=== PATIENT | male | born 1965 | race Hispanic/Latino ===

== ENCOUNTER 2020-07-13 20:33 | Inpatient (IN) | payer OTHER, SELFPAY ==
[2020-07-13] MEDS ORDERED: THIAMINE 100 MG, FOLIC ACID 1 MG, MULTIPLE VITAMIN INJ, ADULT 10 ML in SODIUM CHLORIDE ... IV ONE (21:42)
[2020-07-13] MEDS ORDERED: SODIUM CHLORIDE 0.9% 1000 ML 1,000 ML IV ONE (21:42)
--- NOTE | 2020-07-13 21:50 | Emergency Department Report ---
HPI - General Chief Complaint: Alcohol Time Seen by Provider: 07/13/20 21:10 - HPI HPI: This is a 54-year-old male presents to the emergency department with a complaint of alcohol withdrawal. He does admit to alcohol dependence and last drank alcohol about 5 to 6 hours ago. Patient is homeless and says that he was hitchhiking on his way to [facility] in [place] because they allegedly have a alcohol detox program there. He denies any other past medical history. He complains of chills, tremors, nausea, body aches. He does admit to history of delirium tremens and alcohol withdrawal seizures. He has not taken anything for symptoms prior to presentation. He denies any fever, chest pain, shortness of breath, headache, vision change. ED Review of Systems ROS: Stated complaint: ETOH Other details as noted in HPI Comment: All other systems reviewed and negative Constitutional: chills. denies: fever Eyes: denies: eye pain, vision change ENT: denies: ear pain, throat pain Respiratory: denies: cough, shortness of breath Cardiovascular: denies: chest pain, palpitations Gastrointestinal: nausea. denies: vomiting Genitourinary: denies: dysuria, discharge Musculoskeletal: myalgia. denies: joint swelling Skin: denies: rash, lesions Neurological: other (tremors). denies: headache, numbness Physical Exam - Physical Exam Physical Exam: GENERAL: The patient is well-developed well-nourished. HENT: Normocephalic. Atraumatic. Patient has moist mucous membranes. EYES: Extraocular motions are intact. NECK: Supple. Trachea is midline. CHEST/LUNGS: Clear to auscultation. There is no respiratory distress noted. HEART/CARDIOVASCULAR: Regular. There is moderate tachycardia. There is no murmur. ABDOMEN: Abdomen is soft, nontender. Patient has normal bowel sounds. There is no abdominal distention. SKIN: Skin is warm and dry. NEURO: The patient is awake, alert, and oriented. The patient is cooperative. Moderate bilateral upper extremity tremors. Normal speech. MUSCULOSKELETAL: There is no tenderness or deformity. There is no limitation range of motion. PSYCH: Patient appears very anxious. ED Medical Decision Making - Lab Data Result diagrams: 07/13/20 22:01 07/13/20 22:01 - Radiology Data Radiology results: image reviewed interpreted by me: Chest x-ray does not show any acute process. There are no pleural effusions, obvious pneumonia and there is no pneumothorax. No significant cardiomegaly. - Medical Decision Making This patient presents to the emergency department with complaint of alcohol withdrawal symptoms. He does present with moderate tachycardia, initially with a heart rate of 142 bpm, appears slightly anxious and has been bilateral upper extremity tremors. This is consistent with alcohol withdrawal, however, the patient's blood alcohol level came back at 0.39. He was given 4 mg of Ativan as part of the alcohol withdrawal protocol which did help with the tachycardia and tremors, but that is mostly because the patient is sleeping at this time. While the patient is sleeping he will have some transient oxygen desaturation and the patient has been placed on oxygen via nasal cannula. Chest x-ray did not show any pneumonia, pleural effusions, pneumothorax, or any other acute process. The patient will be admitted to the hospital for further evaluation and treatment and was accepted for admission by the hospitalist, Dr. Sotomayor. Critical Care Time: No Critical care attestation.: If time is entered above; I have spent that time in minutes in the direct care of this critically ill patient, excluding procedure time. ED Disposition Clinical Impression: Alcohol abuse Alcohol dependence Qualifiers: Substance use status: in withdrawal Complication of substance-induced conditi on: with unspecified complication Qualified Code(s): F10.239 - Alcohol dependence with withdrawal, unspecified Alcohol withdrawal Qualifiers: Complication of substance-induced condition: with unspecified complication Qualified Code(s): F10.239 - Alcohol dependence with withdrawal, unspecified Disposition: 09 OP ADMIT IP TO THIS HOSP Is pt being admited?: Yes Condition: Fair Time of Disposition: 00:31
[2020-07-13] MEDS: LORazepam 2 MG/ML VIAL IV PRN (22:13)
[2020-07-13 22:26] LABS: Basophils % (Auto) 0.8 % (0.0-1.8); Eosinophils % (Auto) 0.6 % (0.0-4.3); Hematocrit 46.7 % (35.5-45.6); Hemoglobin 16.2 gm/dl (11.8-15.2); Lymphocytes # (Auto) 1.4 K/mm3 (1.2-5.4); Lymphocytes % (Auto) 38.7 % (13.4-35.0); Mean Corpuscular HGB Conc 35 % (32-34); Mean Corpuscular Volume 99 fl (84-94); Monocytes # (Auto) 0.4 K/mm3 (0.0-0.8); Monocytes % (Auto) 10.1 % (0.0-7.3); Platelet Count 271 K/mm3 (140-440); Red Cell Distribution Width 16.5 % (13.2-15.2)
[2020-07-13 22:54] LABS: Alanine Aminotransferase 97 units/L (7-56); Albumin 3.9 g/dL (3.9-5); Blood Urea Nitrogen 4 mg/dL (9-20); Calcium 8.6 mg/dL (8.4-10.2); Hemolysis Index 6
[2020-07-13 23:00] LABS: BUN/Creatinine Ratio 6
[2020-07-13 23:09] LABS: Bacteria,Urine 1+ /HPF (Negative); Bilirubin,Urine NEG (Negative); Blood,Urine NEG (Negative); Color,Urine Yellow (Yellow); Mucus,Urine FEW /HPF; Protein,Urine <15 mg/dL mg/dL (Negative); Urobilinogen,Urine < 2.0 mg/dL (<2.0)
[2020-07-13 23:15] LABS: Amphetamine Screen,Urine PRESUMPTIVE NEGATIVE; Benzodiazepines Screen,Urine PRESUMPTIVE NEGATIVE; Cannabinoid Screen,Urine PRESUMPTIVE POSITIVE; Cocaine Screen,Urine PRESUMPTIVE NEGATIVE; Methadone Screen,Urine PRESUMPTIVE NEGATIVE; Opiate Screen,Urine PRESUMPTIVE NEGATIVE
--- NOTE | 2020-07-14 01:13 | XRay Report ---
CHEST 1 VIEW, 07/13/2020 11:57 PM CLINICAL INFORMATION/INDICATION: Altered mental status COMPARISON: None FINDINGS: SUPPORT DEVICES: None. HEART: The cardiac silhouette is normal in size. LUNGS/PLEURA: The lungs are clear of focal airspace disease or significant pleural effusion. ADDITIONAL FINDINGS: No additional acute findings. IMPRESSION: 1. No evidence of acute cardiopulmonary process. Signer Name: Henrietta Campo MD Signed: 07/14/2020 1:09 AM Workstation Name: [id number]
[2020-07-14] MEDS ORDERED: LORazepam 2 MG/ML VIAL ONE (02:35)
[2020-07-14] MEDS: LORazepam 2 MG/ML VIAL IV PRN ×8 (02:36→18:08)
[2020-07-14] MEDS ORDERED: ONDANSETRON 4 MG/2 ML INJ IV PRN (02:56)
[2020-07-14] MEDS ORDERED: POTASSIUM CHLORIDE ER 20 MEQ TAB PO ONE ×2 (03:15→04:02)
--- NOTE | 2020-07-14 03:45 | History and Physical Report ---
History of Present Illness Date of examination: 07/14/20 Date of admission: 07/14/20 00:31 Chief complaint: Tremor and shakes History of present illness: 54 year old male presents with shakes , nausea and body aches, patient is homeless and abuses alcohol and had his last drink 5-6 hours before presentation to the Emergency Room. Patient said he is hitchhiking to get to [facility] where he is hoping to get detoxification for alcohol abuse.No history of fever, shortness of breath Past History Past Medical History: other (Delirium Tremens) Past Surgical History: No surgical history Social history: alcohol abuse, other (Homeless) Medications and Allergies Allergies Allergy/AdvReac Type Severity Reaction Status Date / Time aripiprazole [From Abilify] Allergy Unknown Verified 07/13/20 21:53 mirtazapine [From Remeron] Allergy Unknown Verified 07/13/20 21:53 ziprasidone [From Geodon] Allergy Unknown Verified 07/13/20 21:53 Active Meds: Active Medications Heparin Sodium (Porcine) (Heparin) 5,000 unit SUB-Q Q12HR SHIREEN Thiamine HCl 100 mg/ Folic Acid 1 mg/ Multivitamins/Minerals 10 ml/ Sodium Chloride 1,011.2 mls @ 250 mls/hr IV DAILY@2200 [facility] Sodium Chloride (Nacl 0.9% 1000 Ml) 1,000 mls @ 125 mls/hr IV DIRECT SHIREEN Lorazepam (Ativan) 2 mg IV Q1HR PRN PRN Reason: CIWA-Ar 8-15 Lorazepam (Ativan) 4 mg IV Q1HR PRN PRN Reason: CIWA-Ar 16-25 Last Admin: 07/13/20 22:13 Dose: 4 mg Documented by: Ondansetron HCl (Zofran) 4 mg IV Q8H PRN PRN Reason: Nausea And Vomiting Review of Systems Constitutional: weakness, no weight loss, no weight gain, no fever, no chills, no sweats, no night sweats, no malaise Eyes: bilateral: other (NO BILATERAL EYE SYMPTOMS) Ears, nose, mouth and throat: no ear pain, no ear discharge, no decreased hearing, no nasal congestion, no nasal discharge Cardiovascular: no chest pain, no palpitations, no rapid/irregular heart beat, no lightheadedness, no shortness of breath, no phlebitis Respiratory: no cough, no shortness of breath Gastrointestinal: nausea, no abdominal pain, no vomiting, no diarrhea, no constipation Genitourinary Male: no dysuria, no hematuria Rectal: no pain, no itching Musculoskeletal: no neck stiffness, no neck pain, no low back pain, no muscle weakness Integumentary: no rash, no pruritis, no redness, no sores, no wounds, no jaundice, no lesions Neurological: weakness, no paralysis, no parathesias, no numbness, no tingling, no seizures, no syncope, no tremors, no vertigo, no headaches, no migraines, no convulsions, no aphasia Psychiatric: no anxiety, no memory loss, no insomnia Endocrine: no cold intolerance, no heat intolerance, no nocturia, no palpatations Hematologic/Lymphatic: no easy bruising, no easy bleeding Allergic/Immunologic: no persistent infections, no anaphylaxis Exam - Constitutional Vitals: Temp Pulse Resp BP Pulse Ox 97.9 F 91 H 18 116/72 87 07/13/20 21:44 07/13/20 23:30 07/13/20 23:30 07/13/20 23:30 07/13/20 23:30 General appearance: Present: mild distress - EENT Eyes: Present: PERRL ENT: hearing intact, clear oral mucosa - Neck Neck: Present: supple, normal ROM - Respiratory Respiratory effort: normal - Cardiovascular Rhythm: regular Heart Sounds: Present: S1 & S2. Absent: gallop, systolic murmur, diastolic murmur - Extremities Extremities: no ischemia, No edema Peripheral Pulses: within normal limits - Abdominal General gastrointestinal: Present: soft, non-tender, non-distended. Absent: tender, distended, rigid Male genitourinary: Present: deferred - Rectal Rectal Exam: deferred - Integumentary Integumentary: Present: clear, warm, dry. Absent: jaundice - Musculoskeletal Musculoskeletal: strength equal bilaterally - Psychiatric Psychiatric: depressed (PATIENT VOICED SUICIDAL INTENTION TO THE NURSE), other - Neurologic Neurologic: moves all extremities HEART Score - HEART Score Age: 45-65 Risk factors: 1-2 risk factors - Critical Actions Critical Actions: 0-3 pts:0.9-1.7%risk of adverse cardiac event.Candidate for discharge Results - Labs CBC & Chem 7: 07/13/20 22:01 07/13/20 22:01 Labs: Laboratory Last Values WBC 3.7 K/mm3 (4.5-11.0) L 07/13/20 22: RBC 4.70 M/mm3 (3.65-5.03) 07/13/20 22: Hgb 16.2 gm/dl (11.8-15.2) H 07/13/20 22:01 Hct 46.7 % (35.5-45.6) H 07/13/20 22: MCV 99 fl (84-94) H 07/13/20 22: MCH 34 pg (28-32) H 07/13/20 22: MCHC 35 % (32-34) H 07/13/20: RDW 16.5 % (13.2-15.2) H 07/13/20 22: Plt Count 271 K/mm3 (140-440) 07/13/20 22:01 Lymph % (Auto) 38.7 % (13.4-35.0) H 07/13/20 22: [place] % (Auto) 10.1 % (0.0-7.3) H 07/13/20 22: Eos % (Auto) 0.6 % (0.0-4.3) 07/13/20 22: Baso % (Auto) 0.8 % (0.0-1.8) 07/13/20 22: Lymph # 1.4 K/mm3 (1.2-5.4) 07/13/20 22: [place] # 0.4 K/mm3 (0.0-0.8) 07/13/20: Eos # 0.0 K/mm3 (0.0-0.4) 07/13/20 22: Baso # 0.0 K/mm3 (0.0-0.1) 07/13/20 22: Seg Neutrophils % 49.8 % (40.0-70.0) 07/13/20: Seg Neutrophils # 1.8 K/mm3 (1.8-7.7) 07/13/20 22:01 Sodium 145 mmol/L (137-145) 07/13/20 22: Potassium 3.5 mmol/L (3.6-5.0) L 07/13/20 22:01 Chloride 102.5 mmol/L (98-107) 07/13/20 22:01 Carbon Dioxide 26 mmol/L (22-30) 07/13/20 22:01 Anion Gap 20 mmol/L 07/13/20 22:01 BUN 4 mg/dL (9-20) L 07/13/20 22:01 Creatinine 0.7 mg/dL (0.8-1.3) L 07/13/20 22:01 Estimated GFR > 60 ml/min 07/13/20 22:01 BUN/Creatinine Ratio 6 % 07/13/20 22:01 Glucose 107 mg/dL (75-100) H 07/13/20 22:01 Calcium 8.6 mg/dL (8.4-10.2) 07/13/20 22: Total Bilirubin 0.30 mg/dL (0.1-1.2) 07/13/20 22:01 AST 158 units/L (5-40) H 07/13/20 22:01 ALT 97 units/L (7-56) H 07/13/20 22:01 Alkaline Phosphatase 102 units/L (35-129) 07/13/20 22:01 Total Protein 7.7 g/dL (6.3-8.2) 07/13/20 22:01 Albumin 3.9 g/dL (3.9-5) 07/13/20 22: Albumin/Globulin Ratio 1.0 % 07/13/20 22:01 Urine Color Yellow (Yellow) 07/13/20 22:47 Urine Turbidity Clear (Clear) 07/13/20 22:47 Urine pH 7.0 (5.0-7.0) 07/13/20 22:47 Ur Specific [place] 1.005 (1.003-1.030) 07/13/20 22:47 Urine Protein <15 mg/dl mg/dL (Negative) 07/13/20 22:47 Urine Glucose (UA) Neg mg/dL (Negative) 07/13/20 22:47 Urine Ketones Neg mg/dL (Negative) 07/13/20 22:47 Urine Blood Neg (Negative) 07/13/20 22:47 Urine Nitrite Neg (Negative) 07/13/20 22:47 Urine Bilirubin Neg (Negative) 07/13/20 22:47 Urine Urobilinogen < 2.0 mg/dL (<2.0) 07/13/20 22:47 Ur Leukocyte Esterase Neg (Negative) 07/13/20 22:47 Urine WBC (Auto) 1.0 /HPF (0.0-6.0) 07/13/20 22:47 Urine RBC (Auto) 1.0 /HPF (0.0-6.0) 07/13/20 22:47 Urine Bacteria (Auto) 1+ /HPF (Negative) 07/13/20 22:47 Urine Mucus Few /HPF 07/13/20 22:47 Urine Opiates Screen Presumptive negative 07/13/20 22:47 Urine Methadone Screen Presumptive negative 07/13/20 22:47 Ur Barbiturates Screen Presumptive negative 07/13/20 22:47 Ur Phencyclidine Scrn Presumptive negative 07/13/20 22:47 Ur Amphetamines Screen Presumptive negative 07/13/20 22:47 U Benzodiazepines Scrn Presumptive negative 07/13/20 22:47 Urine Cocaine Screen Presumptive negative 07/13/20 22:47 U Marijuana (THC) Screen Presumptive positive 07/13/20 22:47 Drugs of Abuse Note Disclamer 07/13/20 22:47 Plasma/Serum Alcohol 0.39 % (0-0.07) H 07/13/20 22:01 Vazquez/IV: IV Catheter Type [Right Upper Peripheral IV arm] Assessment and Plan - Patient Problems (1) Suicidal ideations Current Visit: Yes Status: Acute Plan to address problem: INVOLUNTARY CONFINEMENT (1013) (2) Alcohol abuse Current Visit: Yes Status: Acute Plan to address problem: 1 CIWA PROTOCOL 2. I.V NORMAL SALINE MIXED WITH THIAMINE, FOLIC ACID, MULTIVITAMIN ,MAGNESIUM (3) Alcohol withdrawal Current Visit: Yes Status: Acute Qualifiers: Complication of substance-induced condition: with unspecified complication Qualified Code(s): F10.239 - Alcohol dependence with withdrawal, unspecified Plan to address problem: CIWA PROTOCOL I.V NORMAL SALINE MIXED WITH THIAMINE, FOLIC ACID , MULTIVITAMIN, MAGNESIUM LEVEL
[2020-07-14] MEDS ORDERED: HEPARIN 5,000 UNIT/1 ML VIAL ONE (04:02)
[2020-07-14] MEDS: HEPARIN 5,000 UNIT/1 ML VIAL SUB-Q SCH ×2 (04:07→09:23)
[2020-07-14] MEDS: SODIUM CHLORIDE 0.9% 1000 ML 1,000 ML IV SCH ×2 (05:17→13:56)
[2020-07-14 11:38] LABS: C-Reactive Protein 0.3 mg/dL (0.00-1.30)
--- NOTE | 2020-07-14 15:24 | Event Note ---
Date: 07/14/20 Patient is showing some improvement, but still with tremor and diarrhea. Covid19 testing ordered, continue CIWA protocol, continue supportive care with banana bag for electrolyte
[2020-07-14] MEDS ORDERED: HALOPERIDOL LACTATE 5 MG/1 ML INJ IM ONE (20:00)
[2020-07-14] MEDS ORDERED: THIAMINE 100 MG, FOLIC ACID 1 MG, MULTIPLE VITAMIN INJ, ADULT 10 ML in SODIUM CHLORIDE ... IV SCH (22:00)
[2020-07-15] MEDS: LORazepam 2 MG/ML VIAL IV PRN ×3 (03:17→11:48)
[2020-07-15 05:51] LABS: Hematocrit 37.8 % (35.5-45.6); Hemoglobin 13.6 gm/dl (11.8-15.2); Mean Corpuscular HGB Conc 36 % (32-34); Mean Corpuscular Volume 97 fl (84-94); Platelet Count 175 K/mm3 (140-440); Red Cell Distribution Width 15.3 % (13.2-15.2)
[2020-07-15 06:11] LABS: Alanine Aminotransferase 89 units/L (7-56); Albumin 3.2 g/dL (3.9-5); Blood Urea Nitrogen 5 mg/dL (9-20); Calcium 8.5 mg/dL (8.4-10.2); Hemolysis Index 18
[2020-07-15 06:45] LABS: BUN/Creatinine Ratio 8
--- NOTE | 2020-07-15 08:29 | Progress Note ---
Assessment and Plan Assessment and plan: This is a 54-year-old male presents to the emergency department with a complaint of alcohol withdrawal. He does admit to alcohol dependence and last drank alcohol about 5 to 6 hours ago. Patient is homeless and says that he was hitchhiking on his way to [facility] in [place] because they allegedly have a alcohol detox program there. He denies any other past medical history. He complains of chills, tremors, nausea, body aches. He does admit to history of delirium tremens and alcohol withdrawal seizures. He has not taken anything for symptoms prior to presentation. He denies any fever, chest pain, shortness of breath, headache, vision change. 07/15: Patient is clinically stable. Will continue to monitor. still mild withdrawal. Replace electrolytes ETOH withdrawal with DT-CIWA 9 this am Acute Metabolic Encephalopathy Suicidal Ideation- Sitter in place Leukopenia Hypokalemia Gastroenteritis- Diarrhea- Resolving Transaminitis- Likely from ETOH Plan Still requires inpatient stay due to persistent confusion Psych eval noted 1013 Rescinded Negative Coronavirus Continue CIWA protocol Replace electrolytes- mag, potassium No abdominal pain DVT/GI prophy History Interval history: Patient seen and examined, clinically stable. still some tremor but ambulating, 1013 Discontinued Hospitalist Physical - Constitutional Vitals: Temp Pulse Resp BP Pulse Ox 98.5 F 82 20 137/91 95 07/15/20 06:16 07/15/20 06:16 07/15/20 06:16 07/15/20 06:16 07/15/20 06:16 General appearance: Present: no acute distress, mild distress, well-nourished - EENT Eyes: Present: PERRL, EOM intact - Neck Neck: Present: supple, normal ROM - Respiratory Respiratory effort: normal Respiratory: bilateral: CTA - Cardiovascular Rhythm: regular - Extremities Extremities: no ischemia, pulses intact, No edema, normal temperature, Full ROM Peripheral Pulses: within normal limits - Abdominal General gastrointestinal: soft, non-tender, non-distended, normal bowel sounds - Integumentary Integumentary: Present: clear, warm - Psychiatric Psychiatric: appropriate mood/affect, intact judgment & insight - Neurologic Neurologic: CNII-XII intact, moves all extremities - Allied Health Allied health notes reviewed: nursing HEART Score - HEART Score Age: 45-65 Risk factors: 1-2 risk factors - Critical Actions Critical Actions: 0-3 pts:0.9-1.7%risk of adverse cardiac event.Candidate for discharge Results - Labs CBC & Chem 7: 07/15/20 04:13 07/15/20 04:13 Labs: Laboratory Last Values WBC 3.2 K/mm3 (4.5-11.0) L 07/15/20 04:13 RBC 3.90 M/mm3 (3.65-5.03) 07/15/20 04:13 Hgb 13.6 gm/dl (11.8-15.2) 07/15/20 04:13 Hct 37.8 % (35.5-45.6) D 07/15/20 04:13 MCV 97 fl (84-94) H 07/15/20 04:13 MCH 35 pg (28-32) H 07/15/20 04:13 MCHC 36 % (32-34) H 07/15/20 04:13 RDW 15.3 % (13.2-15.2) H 07/15/20 04:13 Plt Count 175 K/mm3 (140-440) 07/15/20 04:13 Lymph % (Auto) 38.7 % (13.4-35.0) H 07/13/20 22:01 [place] % (Auto) 10.1 % (0.0-7.3) H 07/13/20 22:01 Eos % (Auto) 0.6 % (0.0-4.3) 07/13/20 22:01 Baso % (Auto) 0.8 % (0.0-1.8) 07/13/20 22:01 Lymph # 1.4 K/mm3 (1.2-5.4) 07/13/20 22:01 [place] # 0.4 K/mm3 (0.0-0.8) 07/13/20 22:01 Eos # 0.0 K/mm3 (0.0-0.4) 07/13/20 22:01 Baso # 0.0 K/mm3 (0.0-0.1) 07/13/20 22:01 Seg Neutrophils % 49.8 % (40.0-70.0) 07/13/20 22:01 Seg Neutrophils # 1.8 K/mm3 (1.8-7.7) 07/13/20 22:01 D-Dimer 748.61 ng/mlDDU (0-234) H 07/14/20 13:17 Sodium 137 mmol/L (137-145) D 07/15/20 04:13 Potassium 3.5 mmol/L (3.6-5.0) L 07/15/20 04:13 Chloride 101.6 mmol/L (98-107) 07/15/20 04:13 Carbon Dioxide 23 mmol/L (22-30) 07/15/20 04:13 Anion Gap 16 mmol/L 07/15/20 04:13 BUN 5 mg/dL (9-20) L 07/15/20 04:13 Creatinine 0.6 mg/dL (0.8-1.3) L 07/15/20 04:13 Estimated GFR > 60 ml/min 07/15/20 04:13 BUN/Creatinine Ratio 8 % 07/15/20 04:13 Glucose 91 mg/dL (75-100) 07/15/20 04:13 Calcium 8.5 mg/dL (8.4-10.2) 07/15/20 04:13 Magnesium 1.80 mg/dL (1.7-2.3) 07/14/20 05:58 Ferritin 217.6 ng/mL (30.0-300.0) 07/14/20 13:17 Total Bilirubin 1.10 mg/dL (0.1-1.2) 07/15/20 04:13 AST 160 units/L (5-40) H 07/15/20 04:13 ALT 89 units/L (7-56) H 07/15/20 04:13 Alkaline Phosphatase 90 units/L (35-129) 07/15/20 04:13 Lactate Dehydrogenase 273 units/L (91-180) H 07/14/20 05:58 C-Reactive Protein 0.30 mg/dL (0.00-1.30) 07/14/20 05:58 Total Protein 6.0 g/dL (6.3-8.2) L D 07/15/20 04:13 Albumin 3.2 g/dL (3.9-5) L 07/15/20 04:13 Albumin/Globulin Ratio 1.1 % 07/15/20 04:13 Urine Color Yellow (Yellow) 07/13/20 22:47 Urine Turbidity Clear (Clear) 07/13/20 22:47 Urine pH 7.0 (5.0-7.0) 07/13/20 22:47 Ur Specific [place] 1.005 (1.003-1.030) 07/13/20 22:47 Urine Protein <15 mg/dl mg/dL (Negative) 07/13/20 22:47 Urine Glucose (UA) Neg mg/dL (Negative) 07/13/20 22:47 Urine Ketones Neg mg/dL (Negative) 07/13/20 22:47 Urine Blood Neg (Negative) 07/13/20 22:47 Urine Nitrite Neg (Negative) 07/13/20 22:47 Urine Bilirubin Neg (Negative) 07/13/20 22:47 Urine Urobilinogen < 2.0 mg/dL (<2.0) 07/13/20 22:47 Ur Leukocyte Esterase Neg (Negative) 07/13/20 22:47 Urine WBC (Auto) 1.0 /HPF (0.0-6.0) 07/13/20 22:47 Urine RBC (Auto) 1.0 /HPF (0.0-6.0) 07/13/20 22:47 Urine Bacteria (Auto) 1+ /HPF (Negative) 07/13/20 22:47 Urine Mucus Few /HPF 07/13/20 22:47 Urine Opiates Screen Presumptive negative 07/13/20 22:47 Urine Methadone Screen Presumptive negative 07/13/20 22:47 Ur Barbiturates Screen Presumptive negative 07/13/20 22:47 Ur Phencyclidine Scrn Presumptive negative 07/13/20 22:47 Ur Amphetamines Screen Presumptive negative 07/13/20 22:47 U Benzodiazepines Scrn Presumptive negative 07/13/20 22:47 Urine Cocaine Screen Presumptive negative 07/13/20 22:47 U Marijuana (THC) Screen Presumptive positive 07/13/20 22:47 Drugs of Abuse Note Disclamer 07/13/20 22:47 Plasma/Serum Alcohol 0.39 % (0-0.07) H 07/13/20 22:01 Coronavirus (PCR) Negative (Negative) 07/14/20 Unknown Vazquez/IV: Voiding Method Toilet IV Catheter Type [Left Hand] Peripheral IV IV Catheter Type [Right Upper INT / Saline Lock arm] Active Medications - Current Medications Current Medications: Generic Name Dose Route Start Last Admin Trade Name Freq PRN Reason Stop Dose Admin Folic Acid 1 mg 07/15/20 12:00 Folvite PO DAILY SHIREEN Heparin Sodium (Porcine) 5,000 unit 07/14/20 03:00 07/14/20 09:23 Heparin SUB-Q 5,000 unit Q12HR SHIREEN Administration Sodium Chloride 1,000 mls @ 125 mls/hr 07/14/20 04:00 07/14/20 13:56 Nacl 0.9% 1000 Ml IV 125 mls/hr DIRECT SHIREEN Administration Lorazepam 2 mg 07/13/20 21:42 07/15/20 08:15 Ativan IV 2 mg Q1HR PRN Administration CIWA-Ar 8-15 Lorazepam 4 mg 07/13/20 21:42 07/14/20 15:42 Ativan IV 4 mg Q1HR PRN Administration [facility]-Ar 16-25 Multivitamins 1 each 07/15/20 12:00 Theragran Tab PO DAILY [facility] Ondansetron HCl 4 mg 07/14/20 02:56 Zofran IV Q8H PRN Nausea And Vomiting Thiamine HCl 100 mg 07/15/20 12:00 Vitamin B-1 PO QDAY SHIREEN
[2020-07-15] MEDS ORDERED: POTASSIUM CHLORIDE 20 MEQ PACKET PO SCH (09:00)
[2020-07-15] MEDS ORDERED: MAGNESIUM SULFATE 1 GM in SODIUM CHLORIDE 0.9% 50 ML IV ONE (10:00)
[2020-07-15] MEDS: HEPARIN 5,000 UNIT/1 ML VIAL SUB-Q SCH ×2 (10:26→10:27)
--- NOTE | 2020-07-15 10:33 | Consultation ---
History of Present Illness - Reason for Consult Consult date: 07/15/20 Reason for consult: MHE Requesting physician: RAVI MAR - Chief Complaint Chief complaint: Tremor and shakes - History of Present Psychiatric Illness Per ED Provider: This is a 54-year-old male presents to the emergency department with a complaint of alcohol withdrawal. He does admit to alcohol dependence and last drank alcohol about 5 to 6 hours ago. Patient is homeless and says that he was hitchhiking on his way to [facility] in [place] because they allegedly have a alcohol detox program there. He denies any other past medical history. He complains of chills, tremors, nausea, body aches. He does admit to history of delirium tremens and alcohol withdrawal seizures. He has not taken anything for symptoms prior to presentation. He denies any fever, chest pain, shortness of breath, headache, vision change. PSYCH HPI Patient is a homeless, partially employed, single male with past psychiatric history of bipolar, MDD, and substance use disorder including alcohol and meth and also has past medical history of seizures from alcohol withdrawal. Patient reported was hitchhiking to go to [facility] because he had been treated there before for alcohol detoxification program, and while on his way he was at the front of the store and having drank so many beers, reports feeling like collapsing, informed store ann to call EMS to bring him to the nearest medical facility. Patient reported he has been drinking since age of 14, report drinking behavior started while in school, no successful length of time that he has been without alcohol has been seven months prior to relapse. Patient reports alcohol has affected him socially, been unable to maintain relationship, employment, or been medically stable. Patient reported moving from [place] to [place] in 2018, is been homeless since then and does not have any family members around. Patient currently denies any suicidal thoughts or suicidal ideation, and endorses willingness to participate in an alcohol detox program, preferably [place]. PAST PSYCHIATRIC HISTORY Diagnoses: MDD, Bipolar Suicide attempts or Self-harm behavior: Yes Prior psychiatric hospitalizations: Substance Abuse history: Previous psychiatric medications tried: Outpatient treatment: PAST MEDICAL HISTORY: Family Psychiatric History: None reported or documented SOCIAL HISTORY Marital Status: Single Living Arrangements: homeless Employment Status: partially Access to guns/weapons: none reported Education: 12th grade History of Abuse: none reported Legal History: yes REVIEW OF SYSTEMS Constitutional: Negative for weight loss ENT: Negative for stridor Respiratory: Negative for cough or hemoptysis All other systems reviewed and are negative MENTAL STATUS EXAMINATION General Appearance and Behavior: Age appropriate, fair hygiene, wearing approp riate clothes, lying in bed, good eye contact, cooperative polite with questioning. Cooperation: Participating/engaged Psychomotor Behavior: unremarkable and within normal limits Mood: not so good, Affect and affective range: decreased range Thought Process: Fluent/Logical, Tangential, Circumstantial, Perseverative, Illogical, Goal-directed, Rambling, Pressured, Blocked, Fragmented and Loose associations Thought Content: Within reality Speech: Normal volume, Regular rate and rhythm Intellectual Functioning: Average Suicidal Ideation: Denies SI Homicidal Ideation: Denies HI Impulse Control: Impaired Insight and Judgment: Normal insight and judgment Memory: Normal Attention: Normal Orientation: Alert, oriented, anxious Diagnoses: Assessment and Plan - Psychiatric problem (1) Alcohol use disorder, severe, dependence Current Visit: Yes Status: Acute Treatment Plan Patient denies SI, endorses preference detox program. MEDICATIONS: Risks, benefits and alternatives of medications discussed with the patient, questions answered and consent obtained from patient. PSYCHOTHERAPY: Supportive psychotherapy provided MEDICAL: Per primary team DELIRIUM PRECAUTIONS: Please re-orient patient frequently, keep lights on during the day, and minimize benzodiazepines and opiates as these medications could worsen patient's confusion. ADVERTISING SOLICITOR: per medical team DISPOSITION: Do Not Recommend acute inpatient psychiatric hospitalization at this time LEGAL STATUS: 1013 rescinded FOLLOW-UP: Will sign off Thank you for the consult. Please contact with any questions and/or concerns. Medications and Allergies Allergies Allergy/AdvReac Type Severity Reaction Status Date / Time aripiprazole [From Abilify] Allergy Unknown Verified 07/13/20 21:53 mirtazapine [From Remeron] Allergy Unknown Verified 07/13/20 21:53 ziprasidone [From Geodon] Allergy Unknown Verified 07/13/20 21:53 Active Meds: Active Medications Folic Acid (Folvite) 1 mg PO DAILY SHIREEN Heparin Sodium (Porcine) (Heparin) 5,000 unit SUB-Q Q12HR SHIREEN Last Admin: 07/15/20 10:27 Dose: 5,000 unit Documented by: Sodium Chloride (Nacl 0.9% 1000 Ml) 1,000 mls @ 125 mls/hr IV DIRECT SHIREEN Last Admin: 07/14/20 13:56 Dose: 125 mls/hr Documented by: Magnesium Sulfate 1 gm/ Sodium (Chloride) 52 mls @ 52 mls/hr IV ONCE ONE Stop: 07/15/20 10:59 Lorazepam (Ativan) 2 mg IV Q1HR PRN PRN Reason: JODY-Ar 8-15 Last Admin: 07/15/20 08:15 Dose: 2 mg Documented by: Lorazepam (Ativan) 4 mg IV Q1HR PRN PRN Reason: JODY-Fabian 16-25 Last Admin: 07/14/20 15:42 Dose: 4 mg Documented by: Multivitamins (Theragran Tab) 1 each PO DAILY [facility] Ondansetron HCl (Zofran) 4 mg IV Q8H PRN PRN Reason: Nausea And Vomiting Potassium Chloride (Potassium Chloride) 40 meq PO ONCE SHIREEN Stop: 07/15/20 12:00 Last Admin: 07/15/20 10:27 Dose: 40 meq Documented by: Thiamine HCl (Vitamin B-1) 100 mg PO QDAY [facility] Mental Status Exam - Vital signs Last Vital Signs Temp 98.5 F 07/15/20 06:16 Pulse 82 07/15/20 06:16 Resp 20 07/15/20 06:16 BP 137/91 07/15/20 06:16 Pulse Ox 95 07/15/20 06:16 Results Result Diagrams: 07/15/20 04:13 07/15/20 04:13 Abnormal lab results 07/14/20 07/14/20 07/15/20 Range/Units 05:58 13:17 04:13 WBC 3.2 L (4.5-11.0) K/mm3 MCV 97 H (84-94) fl MCH 35 H (28-32) pg MCHC 36 H (32-34) % RDW 15.3 H (13.2-15.2) % D-Dimer 748.61 H (0-234) ng/mlDDU Potassium (3.6-5.0) mmol/L BUN (9-20) mg/dL Creatinine (0.8-1.3) mg/dL AST (5-40) units/L ALT (7-56) units/L Lactate Dehydrogenase 273 H (91-180) units/L Total Protein (6.3-8.2) g/dL Albumin (3.9-5) g/dL 07/15/20 Range/Units 04:13 WBC (4.5-11.0) K/mm3 MCV (84-94) fl MCH (28-32) pg MCHC (32-34) % RDW (13.2-15.2) % D-Dimer (0-234) ng/mlDDU Potassium 3.5 L (3.6-5.0) mmol/L BUN 5 L (9-20) mg/dL Creatinine 0.6 L (0.8-1.3) mg/dL AST 160 H (5-40) units/L ALT 89 H (7-56) units/L Lactate Dehydrogenase (91-180) units/L Total Protein 6.0 L D (6.3-8.2) g/dL Albumin 3.2 L (3.9-5) g/dL All other labs normal. Assessment and Plan - Psychiatric problem (1) Alcohol use disorder, severe, dependence Current Visit: Yes Status: Acute
[2020-07-15] MEDS ORDERED: chlordiazePOXIDE 25 MG CAP PO PRN ×2 (11:57)
[2020-07-15] MEDS ORDERED: FOLIC ACID 1 MG TAB PO SCH (12:00)
[2020-07-15] MEDS ORDERED: THIAMINE 100 MG TAB PO SCH (12:00)
[2020-07-15] MEDS ORDERED: MULTIVITAMINS ,THERAPEUTIC TAB PO SCH (12:00)
[2020-07-15] MEDS: ZIPRASIDONE MESYLATE 20 MG VIAL IM ONE ×2 (13:44→14:22)
[2020-07-15] MEDS ORDERED: NICOTINE 21 MG/24 HR PATCH TD SCH (14:00)
[2020-07-15 15:07] VITALS: BP 130/94
== END 2020-07-15 16:50 | disposition left against medical advice (07) | DRG 71 ==
LOC: ED 20:33 → 3A 07-14 00:31 → OBSVTOIN 07-15 09:08
PROVIDERS: ADMIT Internal Medicine; ATTEND Internal Medicine
DX: G93.41 Metabolic encephalopathy (principal); F10.239 Alcohol dependence with withdrawal, unspecified; R45.851 Suicidal ideations; D72.819 Decreased white blood cell count, unspecified; E87.6 Hypokalemia; K52.9 Noninfective gastroenteritis and colitis, unspecified; R74.0 Nonspecific elevation of levels of transaminase and lactic acid dehydrogenase [LDH]; Z88.8 Allergy status to other drugs, medicaments and biological substances; Z03.818 Encounter for observation for suspected exposure to other biological agents ruled out
CPT/HCPCS: 36415; 71045; 80053; 80307; 80320; 81001; 82728; 82947; 83615; 83735; 84145; 85025; 85027; 85379; 86140; G0378; G0480; J1630; J1644; J2060; J3411; J3475; J3486; J7030; U0003-CS

== ENCOUNTER 2020-07-17 08:38 | Emergency (ER) | payer SELFPAY ==
[2020-07-17] MEDS ORDERED: HALOPERIDOL LACTATE 5 MG/1 ML INJ IM ONE (10:09)
[2020-07-17] MEDS ORDERED: LORazepam 2 MG/ML VIAL IM ONE (10:10)
[2020-07-17 10:14] LABS: Basophils % (Auto) 0.5 % (0.0-1.8); Eosinophils % (Auto) 0.4 % (0.0-4.3); Hematocrit 46.4 % (35.5-45.6); Hemoglobin 16.3 gm/dl (11.8-15.2); Lymphocytes # (Auto) 1.2 K/mm3 (1.2-5.4); Lymphocytes % (Auto) 20.9 % (13.4-35.0); Mean Corpuscular HGB Conc 35 % (32-34); Mean Corpuscular Volume 97 fl (84-94); Monocytes # (Auto) 0.6 K/mm3 (0.0-0.8); Monocytes % (Auto) 10.4 % (0.0-7.3); Platelet Count 193 K/mm3 (140-440); Red Blood Count 4.78 M/mm3 (3.65-5.03); Red Cell Distribution Width 15.3 % (13.2-15.2)
--- NOTE | 2020-07-17 10:17 | Emergency Department Report ---
<BLAS JASSO - Last Filed: 07/17/20 10:12> ED Psych HPI - General Chief Complaint: Psych Stated Complaint: PARANOID Time Seen by Provider: 07/17/20 09:53 Source: patient Mode of arrival: Ambulatory - History of Present Illness Initial Comments: Patient is 54 years old male unknown to me before however patient was seen here 4 days ago and admitted to the hospital for alcohol withdrawal. Patient brought to the emergency room via EMS for severe delusion and paranoid behavior. Patient is very anxious and looking around stating that people are coming to kill him. When asked him if he have any suicidal thoughts he told me that there is no need for that because somebody also will take care of that. Patient admitted that using methamphetamine last night. Patient denied any homicidal ideation. Patient with obvious visual hallucination. Patient is whispering and avoid to speak in a loud voice stating that they will hear him if he start talking loud. MD Complaint: altered mental status - Related Data Allergies Allergy/AdvReac Type Severity Reaction Status Date / Time aripiprazole [From Abilify] Allergy Unknown Verified 07/13/20 21:53 mirtazapine [From Remeron] Allergy Unknown Verified 07/13/20 21:53 ziprasidone [From Geodon] Allergy Unknown Verified 07/13/20 21:53 ED Review of Systems Comment: All other systems reviewed and negative Constitutional: denies: chills, fever Respiratory: denies: cough, shortness of breath, SOB with exertion Cardiovascular: denies: chest pain, palpitations Gastrointestinal: denies: abdominal pain, nausea, vomiting Musculoskeletal: denies: back pain Neurological: denies: headache, weakness, numbness, paresthesias, confusion, a bnormal gait Psychiatric: anxiety, visual hallucinations. 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") Hx Deep Vein Thrombosis: Yes Hx Arthritis: Yes Hx Seizures: Yes Hx Kidney Stones: Yes Hx Psychiatric Treatment: Yes (Bipolar, depression) Hx COPD: Yes Additional medical history: Heart murmur - Surgical History Additional Surgical History: "face" - Social History Smoking Status: Current Every Day Smoker Substance Use Type: Methamphetamines ED Physical Exam - General Limitations: No Limitations General appearance: alert, anxious - Head Head exam: Present: atraumatic, normocephalic - Eye Eye exam: Present: normal appearance, PERRL - ENT ENT exam: Present: normal exam, normal orophraynx, mucous membranes moist - Neck Neck exam: Present: normal inspection, full ROM. Absent: tenderness, meningismus, lymphadenopathy, thyromegaly - Respiratory Respiratory exam: Present: normal lung sounds bilaterally - Cardiovascular Cardiovascular Exam: Present: tachycardia. Absent: systolic murmur, diastolic murmur - GI/Abdominal GI/Abdominal exam: Present: soft, normal bowel sounds. Absent: distended, tenderness, guarding, rebound, rigid, organomegaly, mass, bruit, pulsatile mass, hernia - Extremities Exam Extremities exam: Present: normal inspection, full ROM, normal capillary refill. Absent: pedal edema, calf tenderness - Back Exam Back exam: Present: normal inspection, full ROM. Absent: CVA tenderness (R), CVA tenderness (L) - Neurological Exam Neurological exam: Present: alert, oriented X3, CN II-XII intact, reflexes normal. Absent: motor sensory deficit - Psychiatric Psychiatric exam: Present: agitated, anxious. Absent: homicidal ideation, suicidal ideation - Skin Skin exam: Present: warm, intact, normal color ED Disposition Clinical Impression: Polysubstance abuse Disposition: DC-01 TO HOME OR SELFCARE Condition: Stable Prescriptions: risperiDONE [RisperDAL] 0.25 mg PO BID #60 tab Referrals: PRIMARY CARE, [Primary Care Provider] - 3-5 Days <MAYTE MCCLAIN - Last Filed: 07/18/20 13:49> ED Review of Systems ROS: Stated complaint: PARANOID Other details as noted in HPI ED Course Vital Signs 07/17/20 07/17/20 07/17/20 08:58 15:10 17:16 Temperature 97.5 F L 97.4 F L Pulse Rate 126 H 113 H 105 H Respiratory 18 18 20 Rate Blood Pressure 147/98 Blood Pressure 109/89 [Left] O2 Sat by Pulse 97 98 Oximetry 07/17/20 07/18/20 07/18/20 21:10 03:49 08:43 Temperature 98.3 F 98.2 F Pulse Rate 73 72 Respiratory 18 18 18 Rate Blood Pressure Blood Pressure 142/67 111/71 [Left] O2 Sat by Pulse 97 98 99 Oximetry 07/18/20 11:07 Temperature Pulse Rate 107 H Respiratory Rate Blood Pressure 97/60 Blood Pressure [Left] O2 Sat by Pulse 98 Oximetry - Reevaluation(s) Reevaluation #1: 07/18/20 13:48 ASSESSMENT (1) Poly-Substance abuse (2) Substance Induced Psychosis PLAN D/C 68911 Start Risperidone 0.25mg po BID Sitter: Defer to primary Medical: Per primary Disposition: Do not recommend acute inpatient psychiatric treatment at this time. The patient may discharge once medically clear. The patient understands that if any fear or feelings of endangerment are to arise. The patient is to seek immediate assistance, including but not limited to the crisis [facility], , 911. He is to abstain from all alcohol and illicit drug use. The patient is to follow up with outpatient psych or primary in 7 to 14 days upon discharge. The assembler crimper is to give the patient resources for outpatient psych, medication assistance and drug and alcohol rehabilitation programs. The treatment plan including benefits and side effects of medication were explained to the patient. He verbalizes understanding and agreement of plan. Will sign off. Thank you for this consult. ED Medical Decision Making - Lab Data Result diagrams: 07/17/20 09:58 07/17/20 09:58 Lab Results 07/17/20 07/17/20 07/17/20 Range/Units 09:58 09:58 09:58 WBC (4.5-11.0) K/mm3 RBC (3.65-5.03) M/mm3 Hgb (11.8-15.2) gm/dl Hct (35.5-45.6) % MCV (84-94) fl MCH (28-32) pg MCHC (32-34) % RDW (13.2-15.2) % Plt Count (140-440) K/mm3 Lymph % (Auto) (13.4-35.0) % Lassen % (Auto) (0.0-7.3) % Eos % (Auto) (0.0-4.3) % Baso % (Auto) (0.0-1.8) % Lymph # (1.2-5.4) K/mm3 Lassen # (0.0-0.8) K/mm3 Eos # (0.0-0.4) K/mm3 Baso # (0.0-0.1) K/mm3 Seg Neutrophils % (40.0-70.0) % Seg Neutrophils # (1.8-7.7) K/mm3 Sodium 137 (137-145) mmol/L Potassium 4.1 (3.6-5.0) mmol/L Chloride 97.9 L (98-107) mmol/L Carbon Dioxide 21 L (22-30) mmol/L Anion Gap 22 mmol/L BUN 6 L (9-20) mg/dL Creatinine 0.8 (0.8-1.3) mg/dL Estimated GFR > 60 ml/min BUN/Creatinine Ratio 8 % Glucose 129 H (75-100) mg/dL Calcium 10.2 D (8.4-10.2) mg/dL Urine Color (Yellow) Urine Turbidity (Clear) Urine pH (5.0-7.0) Ur Specific Vilas (1.003-1.030) Urine Protein (Negative) mg/dL Urine Glucose (UA) (Negative) mg/dL Urine Ketones (Negative) mg/dL Urine Blood (Negative) Urine Nitrite (Negative) Urine Bilirubin (Negative) Urine Urobilinogen (<2.0) mg/dL Ur Leukocyte Esterase (Negative) Urine WBC (Auto) (0.0-6.0) /HPF Urine RBC (Auto) (0.0-6.0) /HPF U Epithel Cells (Auto) (0-13.0) /HPF Urine Mucus /HPF Salicylates < 0.3 L (2.8-20.0) mg/dL Urine Opiates Screen Urine Methadone Screen Acetaminophen 5.0 L (10.0-30.0) ug/mL Ur Barbiturates Screen Ur Phencyclidine Scrn Ur Amphetamines Screen U Benzodiazepines Scrn Urine Cocaine Screen U Marijuana (THC) Screen Drugs of Abuse Note Plasma/Serum Alcohol (0-0.07) % 07/17/20 07/17/20 07/17/20 Range/Units 09:58 09:58 Unknown WBC 5.5 (4.5-11.0) K/mm3 RBC 4.78 (3.65-5.03) M/mm3 Hgb 16.3 H (11.8-15.2) gm/dl Hct 46.4 H D (35.5-45.6) % MCV 97 H (84-94) fl MCH 34 H (28-32) pg MCHC 35 H (32-34) % RDW 15.3 H (13.2-15.2) % Plt Count 193 (140-440) K/mm3 Lymph % (Auto) 20.9 (13.4-35.0) % Lassen % (Auto) 10.4 H (0.0-7.3) % Eos % (Auto) 0.4 (0.0-4.3) % Baso % (Auto) 0.5 (0.0-1.8) % Lymph # 1.2 (1.2-5.4) K/mm3 Lassen # 0.6 (0.0-0.8) K/mm3 Eos # 0.0 (0.0-0.4) K/mm3 Baso # 0.0 (0.0-0.1) K/mm3 Seg Neutrophils % 67.8 (40.0-70.0) % Seg Neutrophils # 3.8 (1.8-7.7) K/mm3 Sodium (137-145) mmol/L Potassium (3.6-5.0) mmol/L Chloride (98-107) mmol/L Carbon Dioxide (22-30) mmol/L Anion Gap mmol/L BUN (9-20) mg/dL Creatinine (0.8-1.3) mg/dL Estimated GFR ml/min BUN/Creatinine Ratio % Glucose (75-100) mg/dL Calcium (8.4-10.2) mg/dL Urine Color Leila (Yellow) Urine Turbidity Clear (Clear) Urine pH 6.0 (5.0-7.0) Ur Specific Vilas 1.021 (1.003-1.030) Urine Protein 100 mg/dl (Negative) mg/dL Urine Glucose (UA) Neg (Negative) mg/dL Urine Ketones Tr (Negative) mg/dL Urine Blood Neg (Negative) Urine Nitrite Neg (Negative) Urine Bilirubin Neg (Negative) Urine Urobilinogen 4.0 (<2.0) mg/dL Ur Leukocyte Esterase Neg (Negative) Urine WBC (Auto) 2.0 (0.0-6.0) /HPF Urine RBC (Auto) 14.0 (0.0-6.0) /HPF U Epithel Cells (Auto) 1.0 (0-13.0) /HPF Urine Mucus 3+ /HPF Salicylates (2.8-20.0) mg/dL Urine Opiates Screen Urine Methadone Screen Acetaminophen (10.0-30.0) ug/mL Ur Barbiturates Screen Ur Phencyclidine Scrn Ur Amphetamines Screen U Benzodiazepines Scrn Urine Cocaine Screen U Marijuana (THC) Screen Drugs of Abuse Note Plasma/Serum Alcohol < 0.01 (0-0.07) % 07/17/20 Range/Units Unknown WBC (4.5-11.0) K/mm3 RBC (3.65-5.03) M/mm3 Hgb (11.8-15.2) gm/dl Hct (35.5-45.6) % MCV (84-94) fl MCH (28-32) pg MCHC (32-34) % RDW (13.2-15.2) % Plt Count (140-440) K/mm3 Lymph % (Auto) (13.4-35.0) % Lassen % (Auto) (0.0-7.3) % Eos % (Auto) (0.0-4.3) % Baso % (Auto) (0.0-1.8) % Lymph # (1.2-5.4) K/mm3 Lassen # (0.0-0.8) K/mm3 Eos # (0.0-0.4) K/mm3 Baso # (0.0-0.1) K/mm3 Seg Neutrophils % (40.0-70.0) % Seg Neutrophils # (1.8-7.7) K/mm3 Sodium (137-145) mmol/L Potassium (3.6-5.0) mmol/L Chloride (98-107) mmol/L Carbon Dioxide (22-30) mmol/L Anion Gap mmol/L BUN (9-20) mg/dL Creatinine (0.8-1.3) mg/dL Estimated GFR ml/min BUN/Creatinine Ratio % Glucose (75-100) mg/dL Calcium (8.4-10.2) mg/dL Urine Color (Yellow) Urine Turbidity (Clear) Urine pH (5.0-7.0) Ur Specific Vilas (1.003-1.030) Urine Protein (Negative) mg/dL Urine Glucose (UA) (Negative) mg/dL Urine Ketones (Negative) mg/dL Urine Blood (Negative) Urine Nitrite (Negative) Urine Bilirubin (Negative) Urine Urobilinogen (<2.0) mg/dL Ur Leukocyte Esterase (Negative) Urine WBC (Auto) (0.0-6.0) /HPF Urine RBC (Auto) (0.0-6.0) /HPF U Epithel Cells (Auto) (0-13.0) /HPF Urine Mucus /HPF Salicylates (2.8-20.0) mg/dL Urine Opiates Screen Presumptive negative Urine Methadone Screen Presumptive negative Acetaminophen (10.0-30.0) ug/mL Ur Barbiturates Screen Presumptive positive Ur Phencyclidine Scrn Presumptive negative Ur Amphetamines Screen Presumptive positive U Benzodiazepines Scrn Presumptive positive Urine Cocaine Screen Presumptive negative U Marijuana (THC) Screen Presumptive positive Drugs of Abuse Note Disclamer Plasma/Serum Alcohol (0-0.07) % - Medical Decision Making Mental health assessment ASSESSMENT (1) Poly-Substance abuse (2) Substance Induced Psychosis PLAN D/C 39029 Start Risperidone 0.25mg po BID Sitter: Defer to primary Medical: Per primary Disposition: Do not recommend acute inpatient psychiatric treatment at this time. The patient may discharge once medically clear. The patient understands that if any fear or feelings of endangerment are to arise. The patient is to seek immediate assistance, including but not limited to the crisis [place], ER, 911. He is to abstain from all alcohol and illicit drug use. The patient is to follow up with outpatient psych or primary in 7 to 14 days upon discharge. The assembler crimper is to give the patient resources for outpatient psych, medication assistance and drug and alcohol rehabilitation programs. The treatment plan including benefits and side effects of medication were explained to the patient. He verbalizes understanding and agreement of plan. Will sign off. Thank you for this consult. Patient will be discharged home. Critical care attestation.: If time is entered above; I have spent that time in minutes in the direct care of this critically ill patient, excluding procedure time. ED Disposition Is pt being admited?: No Does the pt Need Aspirin: No Time of Disposition: 13:49
[2020-07-17 10:35] LABS: BUN/Creatinine Ratio 8; Blood Urea Nitrogen 6 mg/dL (9-20); Calcium 10.2 mg/dL (8.4-10.2); Hemolysis Index 5
[2020-07-17 15:20] LABS: Bilirubin,Urine NEG (Negative); Blood,Urine NEG (Negative); Color,Urine Amber (Yellow); Mucus,Urine 3+ /HPF
[2020-07-17 15:26] LABS: Amphetamine Screen,Urine PRESUMPTIVE POSITIVE; Benzodiazepines Screen,Urine PRESUMPTIVE POSITIVE; Cannabinoid Screen,Urine PRESUMPTIVE POSITIVE; Cocaine Screen,Urine PRESUMPTIVE NEGATIVE; Methadone Screen,Urine PRESUMPTIVE NEGATIVE; Opiate Screen,Urine PRESUMPTIVE NEGATIVE
[2020-07-17] MEDS ORDERED: chlordiazePOXIDE 25 MG CAP PO PRN (21:30)
[2020-07-17] MEDS ORDERED: LORazepam 2 MG/ML VIAL IV PRN (21:30)
[2020-07-17] MEDS ORDERED: LORazepam 2 MG TAB PO PRN (21:30)
--- NOTE | 2020-07-18 12:45 | Consultation ---
History of Present Illness - Reason for Consult Consult date: 07/18/20 Reason for consult: ETOH, paranoid - History of Present Psychiatric Illness The patient's medical record was reviewed and the patient's progress was discussed with the nursing staff. The sitter and the nurse both state the patient has been cooperative and unproblematic. They said he recently just got nervous but has been sleeping. Herrera Orta is a 54y/o male patient who presented to the ER for paranoia, and drug use. The patient was treated recently for ETOH withdrawal according to medical record. During my interview with the patient he standing in the room. He appears anxious. The patient states "this is just my normal disposition." He then says "also it's been a couple of days since I had a drinks," when asking the patient was he anxious. The patient is a/o x 3. He denies SI/HI or any fear of endangerment. He denies hallucinations of any kind. The patient states, "that was yesterday. I was on meth and was having bad psychosis." He says, "it always happens but I've come down off of that and now I'm completely over it." The patient states he "just left a program in [place] a month ago for drinking." He also says, "I've been in several programs in [place]." The patient says he's "been in [place] about two months." Mr. Orta says he "drinks 2 pints of vodka and 4 to 5 malt liquors a day." He says he's not interested in rehab. He says "I don't want to do that. I've tried several times. I won't stay there." He then says, "I'll just leave. I can't get along with any of those people at those places." The patient says he attempt suicide "once in the past." He says, "it was a fake attempt in 2008. I was trying to get attention. I knew people were watching me and would save me." The patient says he's been admitted for psychiatric related problems "20 to 30 times." He says he is currently not on any medications or sees a psychiatrist. The patient says "my life wasn't always like this. My situation is depressing at times, but right now I feel okay." He says, "but I don't want to over it." PAST PSYCHIATRIC HISTORY Diagnoses: Depressive disorder, Bipolar Suicide attempts or Self-harm behavior: Once Prior psychiatric hospitalizations: 20 to 30 [facility] Substance Abuse history: Alcohol, Meth, barbituates, weed Previous psychiatric medications tried: Abilify Outpatient treatment: No PAST MEDICAL HISTORY: COPD Family Psychiatric History: None reported or documented SOCIAL HISTORY Marital Status: Single Living Arrangements: Homeless Employment Status: Unemployed Access to guns/weapons: None reported Education: GED History of Abuse: Denies Legal History: None reported REVIEW OF SYSTEMS Constitutional: Negative for weight loss ENT: Negative for stridor Respiratory: Cough All other systems reviewed and are negative, except respirator MENTAL STATUS EXAMINATION General Appearance: Dressed appropriately Behavior: anxious and cooperative. Good eye contact. Mood: "okay" Affect and affective range: Congruent with stated mood Speech: Normal tone and pace Thought Process: Goal directed Thought content: Suicidal Ideation: Denies Homicidal Ideation: Denies Hallucination: Denies Delusions: None elicited Insight/Judgment: Limited Memory/Cognition: Limited ASSESSMENT (1) Poly-Substance abuse (2) Substance Induced Psychosis PLAN D/C [address]178 Start Risperidone 0.25mg po BID Sitter: Defer to primary Medical: Per primary Disposition: Do not recommend acute inpatient psychiatric treatment at this time. The patient may discharge once medically clear. The patient understands that if any fear or feelings of endangerment are to arise. The patient is to seek immediate assistance, including but not limited to the crisis [place], ER, 911. He is to abstain from all alcohol and illicit drug use. The patient is to follow up with outpatient psych or primary in 7 to 14 days upon discharge. The insole rounder is to give the patient resources for outpatient psych, medication assistance and drug and alcohol rehabilitation programs. The treatment plan including benefits and side effects of medication were explained to the patient. He verbalizes understanding and agreement of plan. Will sign off. Thank you for this consult. Medications and Allergies Allergies Allergy/AdvReac Type Severity Reaction Status Date / Time aripiprazole [From Abilify] Allergy Unknown Verified 07/13/20 21:53 mirtazapine [From Remeron] Allergy Unknown Verified 07/13/20 21:53 ziprasidone [From Geodon] Allergy Unknown Verified 07/13/20 21:53 Home Medications Medication Instructions Recorded Confirmed Last Taken Type risperiDONE [RisperDAL] 0.25 mg PO BID #60 tab 07/18/20 Unknown Rx Active Meds: Active Medications Chlordiazepoxide HCl (Librium) 50 mg PO Q1H PRN PRN Reason: CIWA-Ar 8 Lorazepam (Ativan) 2 mg IV Q1H PRN PRN Reason: CIWA-Ar 8 Last Admin: 07/17/20 21:39 Dose: 2 mg Documented by: Lorazepam (Ativan) 2 mg PO Q1H PRN PRN Reason: CI-Ar 07-03 Mental Status Exam - Vital signs Last Vital Signs Temp 98.2 F 07/18/20 03:49 Pulse 107 H 07/18/20 11:07 Resp 18 07/18/20 08:43 BP 97/60 07/18/20 11:07 Pulse Ox 98 07/18/20 11:07 Results Result Diagrams: 07/17/20 09:58 07/17/20 09:58 All other labs normal.
[2020-07-18 14:44] VITALS: BP 102/60
== END 2020-07-18 14:08 | disposition home or self-care (01) ==
LOC: ED 08:38
DX: F19.10 Other psychoactive substance abuse, uncomplicated (principal); I25.2 Old myocardial infarction; M19.90 Unspecified osteoarthritis, unspecified site; N20.0 Calculus of kidney; F31.9 Bipolar disorder, unspecified; J44.9 Chronic obstructive pulmonary disease, unspecified; F17.200 Nicotine dependence, unspecified, uncomplicated; Z86.69 Personal history of other diseases of the nervous system and sense organs; Z88.8 Allergy status to other drugs, medicaments and biological substances
CPT/HCPCS: 36415; 80048; 80307; 81001; 85025; 96372; 96374; 99284; J1630; J2060; 80320; G0480